=== PATIENT | male | born 1955 | race Hispanic/Latino ===

== ENCOUNTER 2019-12-14 09:54 | Emergency (ER) | payer MEDICARE, MEDICAID ==
[2019-12-14 10:36] LABS: Bilirubin Negative (Negative); Blood, Urine Negative (Negative); Clarity Clear (Clear); Glucose, Urine (Dipstick) Normal (Negative); Leukocyte Negative Leu/uL (Negative); Nitrite Negative (Negative); Protein, Urine (Dipstick) 30 mg/dL (Neg-Trace); RBC/HPF None Seen HPF (0-3); Squamous Epithelial None Seen HPF (0-3); Urobilinogen Normal mg/dL (Less than 2); WBC/HPF 0-3 HPF (0-3)
[2019-12-14 10:37] LABS: Bacteria/HPF 1+ HPF (None Seen)
== END 2019-12-14 11:10 | disposition home or self-care (01) ==
LOC: ERS 09:54
DX: R39.198 Other difficulties with micturition (principal); E11.9 Type 2 diabetes mellitus without complications; Z87.891 Personal history of nicotine dependence; Z79.84 Long term (current) use of oral hypoglycemic drugs
CPT/HCPCS: 81003; 81015; 99281

== ENCOUNTER 2020-02-12 13:48 | Observation (INO) | payer MEDICARE, MEDICAID ==
[2020-02-12 14:44] LABS: #Lymphocytes 0.5 thou/uL (1.20-3.40); #Monocytes 0.4 thou/uL (0.11-0.59); #Neutrophils 7.3 thou/uL (1.40-6.50); %Basophils 0.2 % (0.0-1.0); %Eosinophils 0.2 % (0.0-10.0); %Lymphocytes 6.2 % (21.0-51.0); %Monocytes 4.3 % (0.0-10.0); %Neutrophils 89.1 % (42.0-75.0); Hemoglobin 15.4 g/dL (14.0-18.0); Mean Corpuscular HGB CONC 34.8 g/dL (32.0-36.0); Mean Corpuscular Hemoglobin 30.6 pg (27.0-31.0); Mean Corpuscular Volume 87.9 fL (78.0-98.0); Mean Platelet Volume 7.3 fL (7.4-10.4); Platelet Count 243 thou/uL (130-400); RBC Distribution Width 12.2 % (11.5-14.5); Red Blood Cell (RBC) Count 5.04 mill/uL (4.70-6.10); White Blood Cell (WBC) Count 8.2 thou/uL (4.8-10.8)
--- NOTE | 2020-02-12 14:55 | RAD ---
EXAM: CHEST ONE VIEW HISTORY: Tachycardia, fever, hypoxia. Near syncopal episode. COMPARISON: 04/11/2015 FINDINGS: The cardiac silhouette and pulmonary vasculature is within normal limits. The lungs are clear. The os seous structures are intact. Chest is overall stable compared to prior exam. IMPRESSION: No acute cardiopulmonary process.
[2020-02-12 15:09] LABS: ALT (SGPT) 20 U/L (8-55); AST (SGOT) 16 U/L (5-34); Albumin 4.3 g/dL (3.4-4.8); Alkaline Phosphatase 75 U/L (40-110); Anion Gap 18 mmol/L (10-20); BUN (Urea Nitrogen) 21 mg/dL (8.4-25.7); CK (CPK) 153 U/L (30-200); Calc. Creatinine Clearance 0 mL/min (70-130); Calcium 9.6 mg/dL (7.8-10.44); Carbon Dioxide 19 mmol/L (23-31); Chloride 105 mmol/L (98-107); Estimated GFR-MDRD 56; Globulin 3.2 g/dL (2.4-3.5); Glucose 216 mg/dL (80-115); Protein, Total 7.5 g/dL (5.8-8.1); Sodium 138 mmol/L (136-145)
[2020-02-12] MEDS ORDERED: Sodium Chloride 0.9% 1,000 ML IV SCH (17:01)
[2020-02-12 17:09] VITALS: BMI 26.4
[2020-02-12 17:46] LABS: Lactic Acid 2.7 mmol/L (0.5-2.2)
[2020-02-12] MEDS ORDERED: Acetaminophen 325 MG TAB PO PRN (17:48)
[2020-02-12] MEDS ORDERED: Acetaminophen 650 MG Suppository PR PRN (17:48)
[2020-02-12] MEDS: Sodium Chloride 0.9% 1,000 ML IV SCH (17:59)
[2020-02-12] MEDS ORDERED: Dextrose 5% in Water 1,000 ML IV PRN (18:05)
[2020-02-12] MEDS ORDERED: Dextrose 50% Abboject 50 ML SYRINGE SLOW IVP PRN (18:05)
[2020-02-12] MEDS ORDERED: HumaLOG 300 UNITS/3 ML VIAL SC PRN ×2 (18:05)
[2020-02-12 18:47] LABS: Lactic Acid 2.8 mmol/L (0.5-2.2)
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
[2020-02-12] MEDS: Famotidine/PF 20 mg/2ml Vial SLOW IVP SCH (21:23)
[2020-02-13 00:52] LABS: Amphetamine Not Detected (NotDetected); Bacteria/HPF None Seen HPF (None Seen); Barbiturates Screen Not Detected (NotDetected); Benzodiazepine Screen Not Detected (NotDetected); Bilirubin Negative (Negative); Blood, Urine Negative (Negative); Clarity Clear (Clear); Cocaine Metabolite Screen Not Detected (NotDetected); Glucose, Urine (Dipstick) 500 mg/dL (Negative); Leukocyte Negative Leu/uL (Negative); Medtox Control Line Valid? VALID (VALID); Medtox Reader # READER 1; Methadone Not Detected (NotDetected); Methamphetamine Not Detected (NotDetected); Nitrite Negative (Negative); Opiate Screen Not Detected (NotDetected); Oxycodone Screen Not Detected (NotDetected); Phencyclidine (PCP) Not Detected (NotDetected); Protein, Urine (Dipstick) Negative (Neg-Trace); RBC/HPF 0-3 HPF (0-3); Squamous Epithelial None Seen HPF (0-3); THC/Cannabinoid Screen Not Detected (NotDetected); Tricyclic Screen Not Detected (NotDetected); Urobilinogen 3 mg/dL (Less than 2); WBC/HPF 0-3 HPF (0-3)
[2020-02-13 00:53] LABS: Urine Culture Reflex No No
[2020-02-13] MEDS: Sodium Chloride 0.9% 1,000 ML IV SCH ×3 (05:32→21:29)
--- NOTE | 2020-02-13 07:31 | CT ---
PRELIMINARY REPORT/[facility]/EMERGENCY AFTER HOURS PROCEDURE: PROCEDURE: CTA Chest with IV Contrast Material . HISTORY: Elevated d-dimer and history of syncope. TECHNIQUE: Axial images were performed with multiplanar and 3-D (maximum intensity projection and mekhi face-shaded) reconstructions. The patient was given iodinated nonionic IV contrast . COMPARISON: None . FINDINGS: Trace atherosclerosis thoracic aorta with no aneurysm or dissection. No evidence of pulmonary embolus. Mediastinum and hilar regions show no masses or lymphadenopathy. Normal size heart with no pericardial fluid. No pulmonary consolidation, masses, or pleural fluid. Visualized upper abdomen shows large laminated gallstones in the gallbladder measuring up to 4.5 cm w ith no inflammation and normal size biliary tree. No acute bony abnormality IMPRESSION: No pulmonary embolus or aortic dissection. No pulmonary consolidation. Cholelithiasis. ELECTRONICALLY SIGNED BY: Bret Camara MD Feb 13, 2020 4:34:59 AM CDT This report is intended for review by the ordering physician only, in accordance of law. If you recei ve this report in error, please call [facility] at [phone]. FINAL REPORT EMERGENCY AFTER HOURS CTA CHES WITH CONTRAST: Date: 02/13/2020 FINDINGS/IMPRESSION: I agree with the findings and impression given in the preliminary report per [facility] physici an. 1. No evidence of pulmonary thromboembolism. 2. There is calcification within the entire gallbladder. This may represent a very large gallstone o r this could represent a porcelain gallbladder. POS: NATALIIA
[2020-02-13 07:37] LABS: #Eosinphils 0.1 thou/uL (0.0-0.7); #Lymphocytes 1.2 thou/uL (1.20-3.40); #Monocytes 0.5 thou/uL (0.11-0.59); #Neutrophils 4.6 thou/uL (1.40-6.50); %Basophils 0.4 % (0.0-1.0); %Eosinophils 0.8 % (0.0-10.0); %Lymphocytes 19.2 % (21.0-51.0); %Monocytes 7.3 % (0.0-10.0); %Neutrophils 72.4 % (42.0-75.0); Hemoglobin 12.8 g/dL (14.0-18.0); Mean Corpuscular HGB CONC 34.8 g/dL (32.0-36.0); Mean Corpuscular Hemoglobin 30.7 pg (27.0-31.0); Mean Corpuscular Volume 88.2 fL (78.0-98.0); Mean Platelet Volume 7.1 fL (7.4-10.4); Platelet Count 194 thou/uL (130-400); RBC Distribution Width 12.3 % (11.5-14.5); Red Blood Cell (RBC) Count 4.17 mill/uL (4.70-6.10); White Blood Cell (WBC) Count 6.3 thou/uL (4.8-10.8)
[2020-02-13 07:52] LABS: Anion Gap 10 mmol/L (10-20); BUN (Urea Nitrogen) 11 mg/dL (8.4-25.7); Calc. Creatinine Clearance 107 mL/min (70-130); Calcium 8.2 mg/dL (7.8-10.44); Carbon Dioxide 23 mmol/L (23-31); Chloride 107 mmol/L (98-107); Estimated GFR-MDRD Greater than 90; Glucose 125 mg/dL (80-115); Potassium 3.8 mmol/L (3.5-5.1); Sodium 136 mmol/L (136-145)
[2020-02-13] MEDS: Famotidine/PF 20 mg/2ml Vial SLOW IVP SCH ×2 (08:28→21:29)
[2020-02-13] MEDS ORDERED: Iopamidol 370 76% 100 ML VIAL ONE (13:38)
--- NOTE | 2020-02-13 14:44 | PDOC.HOSPP ---
- Subjective Encounter Date: 02/13/20 Encounter Time: 08:45 Subjective: no chest pain or sob or palp feels better, is amb in room - Objective Vital Signs & Weight: Vital Signs (12 hours) Temp Pulse Resp BP BP Pulse Ox 02/13/20 11:52 99.4 F 65 14 129/62 98 02/13/20 08:35 98.2 F 72 14 134/84 97 02/13/20 03:00 98.4 F 59 L 14 118/69 98 Weight Weight 174 lb I&O: 02/12/20 02/13/20 02/14/20 06:59 06:59 06:59 Intake Total 1000 Output Total 600 Balance 400 Result Diagrams: 02/13/20 07:24 02/13/20 07:24 Additional Labs: Accuchecks 02/13/20 02/13/20 02/12/20 11:57 06:21 22:12 POC Glucose 152 H 136 H 123 H 02/12/20 19:22 POC Glucose 189 H Hospitalist ROS - Medication Medications: Active Medications Generic Name Dose Route Start Last Admin Trade Name Mikeyq PRN Reason Stop Dose Admin Famotidine 20 mg 02/12/20 21:00 02/13/20 08:28 Pepcid SLOW IVP 20 mg Q12HR WILI Administration Sodium Chloride 1,000 mls @ 75 mls/hr 02/12/20 18:00 02/13/20 08:30 Normal Saline 0.9% IV 1,000 mls .[id number] WILI Administration - Exam General Appearance: awake alert Eye: PERRL, anicteric sclera ENT: no oropharyngeal lesions, moist mucosa Neck: supple, no JVD Heart: RRR, no murmur Respiratory: no wheezes, no rales Gastrointestinal: soft, non-tender, non-distended, normal bowel sounds Extremities: no cyanosis, no edema Neurological: cranial nerve grossly intact, no focal deficits Psychiatric: normal affect, A&O x 3 Hosp A/P (1) Syncope Code(s): R55 - SYNCOPE AND COLLAPSE Status: Resolved (2) Dehydration, moderate Code(s): E86.0 - DEHYDRATION Status: Resolved (3) DM type 2 (diabetes mellitus, type 2) Status: Suspected Qualifiers: Diabetes mellitus [employer] insulin use: without care home use - Plan may dc home once covid 19 results are back hemostable may check orthostatic BP diet control of dm
[2020-02-14] MEDS: Sodium Chloride 0.9% 1,000 ML IV SCH (08:48)
[2020-02-14] MEDS: Famotidine/PF 20 mg/2ml Vial SLOW IVP SCH (08:48)
[2020-02-14] MEDS ORDERED: ADENOSINE 60 MG/20 ML VIAL ONE (09:07)
[2020-02-14 09:53] LABS: Troponin I 0.016 ng/mL (< 0.028)
[2020-02-14 12:31] VITALS: BP 137/74; TEMP 97.4
--- NOTE | 2020-02-14 13:22 | NM ---
EXAM: CARDIAC SPECT HISTORY: Syncope, chest pain TECHNIQUE: A myocardial perfusion scan was performed using the single isotope 1 day protocol with mk hnetium 99m sestamibi. [10 mCi] was injected intravenously for the rest exam followed by 30 mCi for the stress study. Pharmacologic stress adenosine was monitored and interpreted by SHUN Correa FINDINGS: Homogeneous tracer distribution is seen in the myocardial segments on stress and rest image s without fixed or reversible defects. Gated SPECT LVEF: 64% Wall motion exam: Normal IMPRESSION: Normal myocardial perfusion scan
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
== END 2020-02-14 14:31 | disposition home or self-care (01) ==
LOC: ERS 13:48 → T4-B 16:39 → INTOOBSV 16:43 → T4-B 16:43 → 2NO 19:54
PROVIDERS: ADMIT Internal Medicine; ATTEND Internal Medicine
DX: R55 Syncope and collapse (principal); R29.6 Repeated falls; E86.0 Dehydration; E87.2 Acidosis; E11.9 Type 2 diabetes mellitus without complications; K59.09 Other constipation; Z87.891 Personal history of nicotine dependence; Z20.828 Contact with and (suspected) exposure to other viral communicable diseases
CPT/HCPCS: 71045; 71275; 78452; 80048; 80306; 81001; 82550; 82962 ×3; 83605; 83735; 83880; 84484 ×2; 85025; 85379; 93005; 93017; 96360; 96361; 99285; A9500; 36415; 36416; 80053; 84443; 96374; G0378; J0153; Q9967; S0028

== ENCOUNTER 2020-02-23 09:23 | Emergency (ER) | payer MEDICARE, MEDICAID ==
[2020-02-23] MEDS ORDERED: Glycerin Liquid Pediatric Supp. 4 ml ONE (09:56)
[2020-02-23] MEDS ORDERED: Magnesium Citrate 300 ML BOT ONE (09:56)
[2020-02-23 10:32] LABS: #Lymphocytes 0.8 thou/uL (1.20-3.40); #Monocytes 0.3 thou/uL (0.11-0.59); #Neutrophils 2.9 thou/uL (1.40-6.50); %Basophils 0.8 % (0.0-1.0); %Eosinophils 0.9 % (0.0-10.0); %Lymphocytes 19.3 % (21.0-51.0); %Monocytes 7.4 % (0.0-10.0); %Neutrophils 71.6 % (42.0-75.0); Hemoglobin 13.7 g/dL (14.0-18.0); Mean Corpuscular HGB CONC 35.8 g/dL (32.0-36.0); Mean Corpuscular Hemoglobin 31.2 pg (27.0-31.0); Mean Corpuscular Volume 87.2 fL (78.0-98.0); Platelet Count 256 thou/uL (130-400); RBC Distribution Width 12.1 % (11.5-14.5); Red Blood Cell (RBC) Count 4.38 mill/uL (4.70-6.10)
--- NOTE | 2020-02-23 10:44 | CT ---
CT abdomen and pelvis with IV contrast HISTORY: Abdomen pain. COMPARISON: 04/08/2019. FINDINGS: Lung bases are clear. Large stones again seen within the gallbladder lumen. No signs of inf lammation. The liver, spleen, kidneys, adrenal glands, and pancreas have a normal CT appearance. No enlarged lymph nodes or free fluid. Appendix not inflamed. No evidence of bowel obstruction. Extending from the left side of the transverse colon, along the entirety of the left colon, And into the sigmoid colon and rectum, there is subtle circumferential wall thickening without a focal mass or adjacent fat stranding. Occasional diverticulum is present, although no focal area of more severe inflammation. Visualized mesenteric arteries remain patent. IMPRESSION : Long segment mild inflamed appearance of the distal colon/rectum. Cause is not evident. Inflammatory bowel disease and infection must be considered. Cholelithiasis.
[2020-02-23 10:54] LABS: ALT (SGPT) 13 U/L (8-55); AST (SGOT) 12 U/L (5-34); Albumin 3.9 g/dL (3.4-4.8); Alkaline Phosphatase 92 U/L (40-110); Anion Gap 11 mmol/L (10-20); BUN (Urea Nitrogen) 14 mg/dL (8.4-25.7); Bilirubin, Total 1.2 mg/dL (0.2-1.2); Calc. Creatinine Clearance 0 mL/min (70-130); Calcium 8.7 mg/dL (7.8-10.44); Carbon Dioxide 25 mmol/L (23-31); Chloride 105 mmol/L (98-107); Estimated GFR-MDRD Greater than 90; Globulin 2.8 g/dL (2.4-3.5); Glucose 139 mg/dL (80-115); Lipase 31 U/L (8-78); Potassium 3.6 mmol/L (3.5-5.1); Protein, Total 6.7 g/dL (5.8-8.1); Sodium 137 mmol/L (136-145)
[2020-02-23] MEDS ORDERED: Iopamidol 370 76% 100 ML VIAL ONE (14:29)
== END 2020-02-23 12:01 | disposition home or self-care (01) ==
LOC: ERS 09:23
DX: K52.9 Noninfective gastroenteritis and colitis, unspecified (principal); D72.819 Decreased white blood cell count, unspecified; Z87.891 Personal history of nicotine dependence
CPT/HCPCS: 74177; 80053; 83690; 85025; Q9967

== ENCOUNTER 2020-02-28 08:57 | Emergency (ER) | payer MEDICARE, MEDICAID | END 2020-02-28 10:08 | disposition home or self-care (01) | LOC: ERS 08:57 | DX: K59.00 Constipation, unspecified (principal); Z87.891 Personal history of nicotine dependence | CPT/HCPCS: 99283 ==

== ENCOUNTER 2020-03-07 08:33 | Emergency (ER) | payer MEDICARE, MEDICAID | END 2020-03-07 09:05 | disposition home or self-care (01) | LOC: ERS 08:33 | DX: F20.9 Schizophrenia, unspecified (principal); F32.9 Major depressive disorder, single episode, unspecified; Z87.891 Personal history of nicotine dependence | CPT/HCPCS: 99281 ==

== ENCOUNTER 2023-10-12 10:29 | Emergency (ER) | payer MEDICARE, MEDICAID ==
[2023-10-12] MEDS ORDERED: Ketorolac Tromethamine 30 MG (1 mL) VIAL ONE (11:39)
== END 2023-10-12 12:20 | disposition home or self-care (01) ==
LOC: ERS 10:29
DX: K08.89 Other specified disorders of teeth and supporting structures (principal); Z87.891 Personal history of nicotine dependence; Z55.6 Problems related to health literacy
CPT/HCPCS: 96372; 99282; J1885